=== PATIENT | male | born 1985 | race Caucasian/White ===

== ENCOUNTER → 2021-06-06 | Outpatient (CLI) | payer SELFPAY ==
--- NOTE | 2021-06-06 16:24 | REP ---
INDICATION: NEOPLASM OF UNCERTAIN BEHAVIOR OF THYROID GLAND. COMPARISON: None. TECHNIQUE: Sonographic images of the thyroid obtained at [facility] 04/29/2021. FINDINGS: I agree with the findings described in the original report. IMPRESSION: I agree with the findings described in the original report. The largest nodule is in the right lobe of the thyroid, is heterogeneous with small cystic areas, and measures 13 x 8 x 9 mm. It is taller than wide. According to TI-RADS criteria this is a TR 4 lesion. Recommend at least six-month follow-up ultrasound. FNA should also be considered given the clinical scenario, which is unknown to me. <Electronically signed by Homer Rosales > 06/06/21 [id number]
== END ==
LOC: M RAD 15:02
PROVIDERS: ATTEND Otolaryngology
DX: D44.0 Neoplasm of uncertain behavior of thyroid gland (principal)

== ENCOUNTER → 2021-07-02 | Outpatient (CLI) | payer OTHER ==
[~2021-07-02] MED LIST: CYCL-707 PO; IBUP80TA PO; LIDOCAINE 1% MDV 20ML VIAL As Ordered ONE; MULT-90 PO
[2021-07-02 12:11] VITALS: BP 154/96
--- NOTE | 2021-07-02 17:53 | REP ---
INDICATION: RT MID THYROID NODULE. COMPARISON: None. TECHNIQUE: The procedure was performed by MEGHAN Lama, under the direct supervision of Dr. Rosales. The risks and benefits of the procedure were explained to the patient and an informed consent was obtained both verbally and written. Directly prior to the start of the procedure a formal time-out was completed in the procedure room. The right thyroid nodule was localized using ultrasound guidance. The skin was prepped and draped in a sterile fashion. Ten mL of 1% lidocaine was used as a local anesthetic. Using ultrasound guidance a 6 fine needle aspirations were obtained using 25 gauge needles. The patient tolerated the procedure well and there were no immediate complications. After the appropriate amount of monitored convalescence the patient was discharged from the department. FINDINGS: Under ultrasound guidance the right thyroid nodule was accessed. Six fine needle aspirations were obtained using 25 gauge needles. Of the 6 specimen 4 were placed in CytoLyt and 2 were placed in Afirma testing tube. These will be sent to the lab for further evaluation. Results pending. IMPRESSION: Successful ultrasound-guided right thyroid nodule fine needle aspiration. <Electronically signed by Mirella Craig > 07/02/21 [id number] <Electronically signed by Homer Rosales > 07/02/21 [id number]
== END ==
LOC: EDUNIT# 06-19 09:00 → M IRPRO 11:24
PROVIDERS: ATTEND Otolaryngology
DX: D44.0 Neoplasm of uncertain behavior of thyroid gland (principal)

== ENCOUNTER → 2023-03-01 | Outpatient (CLI) | payer OTHER ==
[~2023-03-01] MED LIST changes: -LIDOCAINE 1% MDV 20ML VIAL As Ordered ONE
[2023-03-01 14:55] LABS: BASO # 0.1 10^3/uL (0.0-0.2); BASO % 0.5 % (0.0-1.0); EOS # 0.3 10^3/uL (0.0-0.5); EOS % 2.3 % (0.0-3.0); HEMATOCRIT 50.1 % (42.0-52.0); HEMOGLOBIN 16.9 g/dl (13.5-17.5); LYMPH # 2.1 10^3/uL (1.5-5.0); LYMPH % 19.1 % (24.0-44.0); MEAN CORPUSCULAR HEMOGLOBIN 29.5 pg (27.0-33.0); MEAN CORPUSCULAR HGB CONC 33.7 g/dl (32.0-36.5); MEAN CORPUSCULAR VOLUME 87.4 fl (80.0-96.0); MONO # 0.6 10^3/uL (0.0-0.8); MONO % 5.5 % (2.0-8.0); NEUTROPHILS % 72.1 % (36.0-66.0); PLATELET COUNT, AUTOMATED 344 10^3/uL (150-450); RED BLOOD COUNT 5.73 10^6/uL (4.30-6.10); WHITE BLOOD COUNT 11.2 10^3/uL (4.0-10.0)
[2023-03-01 15:21] LABS: ALBUMIN 4.4 G/DL (3.2-5.2); ALKALINE PHOSPHATASE 103 U/L (46-116); ALT/SGPT 48 U/L (7.0-40); AST/SGOT 21 U/L (<34); BLOOD UREA NITROGEN 16 MG/DL (9-23); CALCIUM LEVEL 10.1 MG/DL (8.5-10.1); CARBON DIOXIDE LEVEL 28 MMOL/L (20-31); CHLORIDE LEVEL 103 MMOL/L (98-107); CREATININE FOR GFR 0.88 MG/DL (0.70-1.30); GLOMERULAR FILTRATION RATE > 60.0 (>60); GLUCOSE, FASTING 78 MG/DL (60-100); IRON (FE) 84 UG/DL (65-175); POTASSIUM SERUM 3.9 MMOL/L (3.5-5.1); SODIUM LEVEL 139 MMOL/L (136-145); TOTAL IRON BINDING CAPACITY 323 UG/DL (250-425); TOTAL PROTEIN 7.7 G/DL (5.7-8.2)
[2023-03-01 15:23] LABS: FERRITIN 278.5 NG/ML (10.5-307.3)
[2023-03-01 16:00] LABS: HEPATITIS C VIRUS ABY INDEX 0.12 INDEX (<0.8)
[2023-03-03 21:07] LABS: ALPHA 1 ANTITRYPSIN 136 mg/dL (95-164); ANTINUCLEAR ANTIBODIES DIRECT Negative (Negative); CERULOPLASMIN 23.8 mg/dL (16.0-31.0); LIVER-KIDNEY MICROSOMAL ABY <20.1 Units (0.0-20.0); TISSUE TRANSGLUTAMINASE IgA <2 U/mL (0-3)
== END ==
LOC: M LAB 09:27
PROVIDERS: ATTEND Internal Medicine Gastroenterology
DX: R94.5 Abnormal results of liver function studies (principal)